=== PATIENT | male | born 1965 | race Caucasian/White ===

== ENCOUNTER 2016-07-27 05:56 | Observation (INO) | payer BC ==
[2016-07-26 16:18] LABS: HEMATOCRIT 48.3 % (40.0-51.0); HEMOGLOBIN 17.3 g/dL (13.6-17.8)
--- NOTE | ~2016-07-27 | CN ---
Consultation Report [address] [place]. [address] NAME: BEENA MENDOZA : 61 STATUS : ADM Renu PAT#: [id number] AGE: 51 ADM/REG DATE : 07/27/16 MR#: [id number] REPORT SERV DATE: 07/27/16 DICTATED BY: REYMUNDO AGUILAR DATE: 07/27/16 REPORT STATUS : Draft TRANSCRIBED BY: MODL DATE: 07/27/16 CONSULTATION. DATE OF CONSULTATION: CONSULTING PHYSICIAN: Dr. Sky Masters. REASON FOR CONSULTATION: Hypertension. IMPRESSION: 1. Postoperative hypertension with hypertension even in the outpatient setting. 2. Laryngeal tumor removal. PLAN: At this time, we will place patient on p.r.n. hydralazine. He does not take any home medications and I would avoid using any oral medications in the face of recent laryngeal surgery. We will check routine lab work including renal profile, CBC in the morning. We will also check a hemoglobin A1c. We will monitor blood pressure closely. We thank you for this consultation and we will follow with you. HISTORY OF PRESENT ILLNESS: The patient is a 51-year-old white male, admitted to the ENT Service post laryngeal tumor removal. Blood pressure preoperatively was 200 plus/100. Postoperatively, his blood pressure has been about 160/82. Medicine Service was asked to see the patient in consultation for management of blood pressure. This patient denies any nausea, vomiting, chest pain, fever, chills, cough, wheezing, urinary symptoms, or any other constitutional symptoms. REVIEW OF SYSTEMS: Otherwise negative. PAST MEDICAL HISTORY: Unremarkable. PAST SURGICAL HISTORY: Significant for spinal fusion. ALLERGIES: NO KNOWN DRUG ALLERGIES. HOME MEDICATIONS: None except multivitamins [id number]. SOCIAL HISTORY: Patient works for [employer]. He is not exposed to any unusual fumes, dust, chemicals. He denies smoking. He uses alcohol, maybe about four beers per week. He denies any illicit substances. FAMILY HISTORY: There is no family history of hypertension or heart disease. Father of most likely myelodysplastic syndrome. Consultation Report [address] [place]. [address] NAME: BEENA MENDOZA : 61 STATUS : ADM Renu PAT#: [id number] AGE: 51 ADM/REG DATE : 07/27/16 MR#: [id number] REPORT SERV DATE: 07/27/16 DICTATED BY: REYMUNDO AGUILAR DATE: 07/27/16 REPORT STATUS : Draft TRANSCRIBED BY: IVIS DATE: 07/27/16 PHYSICAL EXAMINATION: GENERAL: White male, standing up by the bed, appears to be in no obvious respiratory distress. He is awake, alert. He is oriented. VITAL SIGNS: Blood pressure is 162/82, heart rate is normal, and he is afebrile. HEENT: Normal. Oropharynx without lesions. NECK: Supple. HEART: Regular rate rhythm. No murmurs, rubs, or gallops are heard. LUNGS: Clear to auscultation. ABDOMEN: Soft, nontender, good bowel sounds. EXTREMITIES: Without cyanosis, clubbing, or edema. MUSCULOSKELETAL: Normal. GENITOURINARY: Genital exam is deferred per the patient's request. NEUROLOGICAL: Cranial nerves II through XII grossly intact. Motor development function appears to be normal. Strength is 5/5. Deep tendon reflexes are 2+. LABORATORY DATA: Lab work personally reviewed as noted in [facility]. We thank you for this consultation. We will follow with you. HARSHA Reymundo Aguilar M.D. / [id number]
--- NOTE | ~2016-07-27 | OP ---
Record Of Operation [facility] [address] [place]. 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 INDICATIONS: Mr. Mendoza is a 51-year-old male, with a history of a mass in the back of his mouth for about a month. I could see that he had a tumor on the right side that appeared to be quite firm. It appeared to be taking its origin in the clinic at least from the anterior surface of the epiglottis. I counseled him about the risks, benefits, and alternatives of this procedure. The risks include, but are not limited to pain, bleeding, infection, and scarring. I told him that if a malignant diagnosis is returned, this procedure would not be sufficient to treat the lesion, and that other workup would be required. He voiced an understanding of those risks and he signed a consent form. PROCEDURE IN DETAIL: Mr. Mendoza was brought to the operating room and positioned on the table in the supine manner. General endotracheal anesthesia was induced. Then used the GlideScope to intubate and although, the tumor was in the way, no significant problems were encountered. The patient then had the table turned 90 degrees and he was prepped and draped in the usual fashion. We used the Dedo laryngoscope to carefully inspect the mouth, the oral cavity, and the hypopharynx, and piriform sinuses, and vallecula. The tumor was taking its origin from the right side of the hypopharynx. I gradually reduced this in size, probably removing about 90% of the exophytic portion of the tumor. What remained was an area that looked to be about the size of a quarter, perhaps a little larger neck, on the right side of the hypopharynx which had a firm base to it and obviously extended in the submucosal areas. We did not extend the resection to be on the mucosa. This was treated with topical epinephrine to stop the bleeding. 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 Once, we had the bleeding stopped, we thoroughly suctioned the oral cavity and removed the Dedo laryngoscope, the Lewy suspension, and the white tooth guard from the upper teeth. Following this, we cleaned him up and returned him to Anesthesia control. He was extubated in the operating room, and moved to the recovery room, and then kept overnight, so that we could discharge him the next morning. DIAGNOSES: 1. Rule out squamous cell carcinoma of hypopharynx. 2. Large tumor arising from the right side of hypopharynx, at least T2 in terms of its total size, although, the mucosal remnant might be only a T1 in size. ULISES/IVIS Ciara Masters M.D. Record Of Operation [address] [address] NAME: BEENA MENDOZA : 61 STATUS : DIS Renu PAT#: [id number] AGE: 51 ADM/REG DATE : 07/27/16 MR#: [id number] REPORT SERV DATE: 08/04/16 DICTATED BY: CIARA MASTERS DATE: 08/04/16 REPORT STATUS : Draft TRANSCRIBED BY: IVIS DATE: 08/04/16 / [id number] CC: Marisabel Pimentel M.D.
[~2016-07-27 05:56] MED LIST: *DENIES; LORT7 PO; METHOC750B PO; MOBIC15 MG PO; MULTIVIT/MIN PO
[2016-07-28 04:26] LABS: BASOPHILS 0 %; EOSINOPHILS 0 %; HEMATOCRIT 46.2 % (40.0-51.0); HEMOGLOBIN 16.2 g/dL (13.6-17.8); IMMATURE GRANULOCYTES 0.4 %; IMMATURE GRANULOCYTES ABSOLUTE 0.09 10/3/uL (0.0-0.11); LYMPHOCYTES 4.8 %; LYMPHOCYTES ABSOLUTE 1.04 10/3/uL (0.67-4.30); MEAN CORPUS HGB CONC 35.1 g/dL (32.0-36.0); MEAN CORPUSCULAR HEMOGLOB 31.4 pg (26.0-34.0); MEAN CORPUSCULAR VOLUME 89.5 fL (80-100); MEAN PLATELET VOLUME 10.4 fL (9.2-13.0); MONOCYTES 3.4 %; MONOCYTES ABSOLUTE 0.74 10/3/uL (0.21-1.20); NEUTROPHILS 91.4 %; NEUTROPHILS ABSOLUTE 19.68 10/3/uL (2.02-8.40); PLATELET COUNT 297 10/3/uL (150-400); RBC DISTRIBUTION WIDTH 12.3 % (12.0-16.0); RED CELL COUNT 5.16 10/6/uL (4.7-6.1); WHITE BLOOD CELLS 21.6 10/3/uL (4.5-10.5)
[2016-07-28 04:27] LABS: MANUAL DIFF NO %
[2016-07-28 04:56] LABS: ALBUMIN 3.2 G/DL (3.5-5.0); BUN (BLOOD UREA NITROGEN) 13 MG/DL (6-23); CALCIUM, SERUM 8.5 MG/DL (8.5-10.4); CHLORIDE, SERUM 108 MMOL/L (96-112); CO2 (CARBON DIOXIDE) 22 MMOL/L (24-34); CREATININE 1.42 MG/DL (0.70-1.30); GFR AFRICAN AMERICAN 65 ML/MIN (>=60); GFR NON AFRICAN AMERICAN 56 ML/MIN (>=60); GLUCOSE, SERUM 219 MG/DL (60-99); PHOSPHORUS, SERUM 1.4 MG/DL (2.5-4.5); POTASSIUM, SERUM 4.4 MMOL/L (3.5-5.3); SODIUM, SERUM 140 MMOL/L (135-148)
[2016-07-28] MEDS ORDERED: XODOL 7.5-3001 EACH PO (09:20)
[2016-07-28] MEDS ORDERED: APRES25 PO (09:20)
[2016-09-10] MEDS ORDERED: MULTIVIT/MIN PO (16:10)
[2016-09-10] MEDS ORDERED: NORV5 PO (16:10)
== END 2016-07-28 11:39 | disposition home or self-care (01) ==
LOC: SDC 05:56 → SDC/OF 09:40 → PACU 10:06 → 4SO 11:25
PROVIDERS: Internal Medicine; Otolaryngology
PROC: 0CBR8ZZ Excision of Epiglottis, Via Natural or Artificial Opening Endoscopic (ICD-10-PCS; principal; 2016-07-27 07:45)
DX: C32.1 Malignant neoplasm of supraglottis (principal); R49.0 Dysphonia; I10 Essential (primary) hypertension; Z88.8 Allergy status to other drugs, medicaments and biological substances
CPT/HCPCS: 80069; 83036; 85014; 85018; 85025; 88305; 88331; 88342; 93005; 96374; 96376; A9270-GY; G0378; J0330; J0360; J2250; J2405; J2710; J3010

== ENCOUNTER 2016-09-15 04:23 | Day surgery (SDC) | payer BC ==
[2016-09-13 18:06] LABS: HEMATOCRIT 46.9 % (40.0-51.0); HEMOGLOBIN 16.2 g/dL (13.6-17.8)
--- NOTE | ~2016-09-15 | OP ---
Record Of Operation [facility] [address] [place]. [address] NAME: BEENA MENDOZA : 61 STATUS : [place] [facility] [place] [id number] AGE: 51 ADM/REG DATE : 09/15/16 MR#: [id number] REPORT SERV DATE: 09/15/16 DICTATED BY: YURIY OLIVIER DATE: 09/15/16 REPORT STATUS : Draft TRANSCRIBED BY: IVIS DATE: 09/15/16 DATE OF PROCEDURE: 09/15/2016 PREOPERATIVE DIAGNOSES: 1. Head and neck cancer. 2. Phlebosclerosis. 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 OPERATION PERFORMED: Right internal jugular Port-A-Cath placement under ultrasound and fluoroscopic guidance. ANESTHESIA: MAC plus local. ESTIMATED BLOOD LOSS: Less than 10 mL. DESCRIPTION OF OPERATION: After appropriate sedation, the patient was prepped and draped in proper sterile fashion. Ultrasound probe was placed over the right neck. He had a patent and pliable right internal jugular vein. The right neck and right chest wall were infiltrated with local anesthesia. Right internal jugular vein was cannulated using a 14- gauge needle under ultrasound guidance. A guidewire was then fed under fluoroscopic guidance just above the right heart. A transverse incision was made in the right chest wall. Subcutaneous tissues were incised down the pectoralis fascia and the pocket was bluntly dissected. Introducer sheath was placed over the guidewire. The catheter was then fed through the introducer sheath. Introducer sheath with the tip being just above the right heart. The catheter was then tunneled subcutaneously to the port pocket and secured to the port. The port was secured to the chest wall using 3-0 Vicryl suture. The port was flushed and aspirated, flushed and aspirated easily. We once again confirmed placement radiographically with the smooth curvature of the catheter. The skin was closed using interrupted 3-0 Vicryl sutures. Steri-Strips and dressings were then placed. The patient was taken to the recovery room in satisfactory condition. RONEL/IVIS Yuriy Olivier M.D. / [id number] CC: Marisabel Jeong M.D.
[~2016-09-15 04:23] MED LIST changes: +APRES25 PO; +NORV5 PO; +XODOL 7.5-3001 EACH PO
== END 2016-09-15 09:14 | disposition home or self-care (01) ==
LOC: SDC 04:23
PROVIDERS: Specialist
PROC: B513YZA Fluoroscopy of Right Jugular Veins using Other Contrast, Guidance (ICD-10-PCS; 2016-09-15)
PROC: 05HM33Z Insertion of Infusion Device into Right Internal Jugular Vein, Percutaneous Approach (ICD-10-PCS; principal; 2016-09-15 05:45)
DX: C76.0 Malignant neoplasm of head, face and neck (principal); I87.8 Other specified disorders of veins; I10 Essential (primary) hypertension; Z98.890 Other specified postprocedural states; Z88.2 Allergy status to sulfonamides; Z79.899 Other long term (current) drug therapy
CPT/HCPCS: 71010; 76000; 77001; 85014; 85018; 93005; C1788; J0690; J2250; J2405; J3010

== ENCOUNTER 2016-09-21 20:37 | Emergency (ER) | payer BC ==
[2016-09-21 21:45] LABS: BASOPHILS 0.1 %; BASOPHILS ABSOLUTE 0.01 10/3/uL (0.0-0.16); EOSINOPHILS 0 %; HEMATOCRIT 44.4 % (40.0-51.0); HEMOGLOBIN 15.4 g/dL (13.6-17.8); IMMATURE GRANULOCYTES 0.3 %; IMMATURE GRANULOCYTES ABSOLUTE 0.03 10/3/uL (0.0-0.11); LYMPHOCYTES 2.9 %; LYMPHOCYTES ABSOLUTE 0.29 10/3/uL (0.67-4.30); MANUAL DIFF NO %; MEAN CORPUS HGB CONC 34.7 g/dL (32.0-36.0); MEAN CORPUSCULAR HEMOGLOB 31.1 pg (26.0-34.0); MEAN CORPUSCULAR VOLUME 89.7 fL (80-100); MONOCYTES 1.4 %; MONOCYTES ABSOLUTE 0.14 10/3/uL (0.21-1.20); NEUTROPHILS 95.3 %; NEUTROPHILS ABSOLUTE 9.57 10/3/uL (2.02-8.40); PLATELET COUNT 254 10/3/uL (150-400); RBC DISTRIBUTION WIDTH 12.6 % (12.0-16.0); RED CELL COUNT 4.95 10/6/uL (4.7-6.1)
[2016-09-21 22:00] LABS: ALBUMIN 3.3 G/DL (3.5-5.0); ALKALINE PHOSPHATASE 46 U/L (45-117); CHLORIDE, SERUM 109 MMOL/L (96-112); CO2 (CARBON DIOXIDE) 25 MMOL/L (24-34); CREATININE 1.37 MG/DL (0.70-1.30); GFR AFRICAN AMERICAN 68 ML/MIN (>=60); GFR NON AFRICAN AMERICAN 58 ML/MIN (>=60); GLOBULIN 3.4 G/DL (2.5-4.1); SGOT(AST) 29 U/L (5-40); SGPT(ALT) 55 U/L (5-65); SODIUM, SERUM 141 MMOL/L (135-148); TOTAL BILIRUBIN 0.6 MG/DL (0-1.2); TOTAL PROTEIN 6.7 G/DL (6.0-8.5); TROPONIN I <0.02 NG/ML (<0.05)
[2016-09-21 22:01] LABS: BUN (BLOOD UREA NITROGEN) 14 MG/DL (6-23); GLUCOSE, SERUM 240 MG/DL (60-99)
== END 2016-09-21 23:16 | disposition home or self-care (01) ==
LOC: ER 20:37
PROVIDERS: Emergency Medicine
DX: R55 Syncope and collapse (principal); I10 Essential (primary) hypertension; Z85.818 Personal history of malignant neoplasm of other sites of lip, oral cavity, and pharynx; Z88.6 Allergy status to analgesic agent; Z79.899 Other long term (current) drug therapy
CPT/HCPCS: 80053; 84484; 85025; 93005; 96374; 96375; 99284; A9270-GY